=== PATIENT | male | born 1945 | race Caucasian/White ===

== ENCOUNTER 2017-09-06 06:09 | Inpatient (IN) ==
[2017-09-06] MEDS ORDERED: Levofloxacin 500 MG/100 ML 500 MG/100 ML BAG IVPB ONE (06:40)
[2017-09-06] MEDS ORDERED: Ringers Solution, Lactated 1,000 ML IVC SCH (06:45)
--- NOTE | 2017-09-06 06:55 | Urology History & Physical ---
Date of Encounter: 09/06/17 Time of Encounter: 06:52 Assessment and Plan (1) Left renal mass Current Visit: Yes Status: Acute to OR today for left hand assisted lap nephrectomy History of Present Illness Chief complaint: left renal mass HPI: Mr. Carballo is a 72 year old male with history of large left renal mass. Patient here today for left radical nephrectomy. Past Med Surg Social Fam HX - Past Medical History Medical history: diabetes, hyperlipidemia, hypertension, other Additional medical history: Insomnia. heart dx Psychiatric history: depression - Past Surgical History Additional surgical history: heart bypass 2004. prostate sx 2007 - Social History Smoking Status: Unknown if ever smoked Smokeless Tobacco Status: No Alcohol use: none Drug use: none, other Medications and Allergies cephALEXin [Keflex] 500 mg PO BID #20 capsule 02/05/17 [Rx] 3 Allergy/AdvReac Type Severity Reaction Status Date / Time etodolac AdvReac Nausea Verified 09/06/17 06:50 tramadol AdvReac Nausea Verified 09/06/17 06:50 Review of Systems - Constitutional no chills, no fever(s) - EENT Nose, mouth and throat: no dizziness - Cardiovascular no chest pain - Respiratory no cough - Gastrointestinal abdominal pain Exam Initial Vital Signs Temp Pulse Resp BP Pulse Ox 97.7 F 69 18 166/95 99 09/06/17 06:35 09/06/17 06:35 09/06/17 06:35 09/06/17 06:35 09/06/17 06:35 - General physical appearance Present: well developed, well nourished - Eyes Present: PERRL - ENT Present: normal nares - Cardiovascular Cardiovascular exam IM: RRR - Abdomen Abdomen: Present: soft Urology Results - Labs All other labs normal.
[2017-09-06] MEDS ORDERED: Lidocaine -MPF 2% 2 ML VIAL ONE (06:56)
[2017-09-06] MEDS ORDERED: *HR* FentaNYL (PF) 100 MCG/2 ML VIAL ONE ×2 (06:56→08:38)
[2017-09-06] MEDS ORDERED: *HR* Rocuronium Bromide 50 MG/5 ML VIAL ONE (06:56)
[2017-09-06] MEDS ORDERED: Neostigmine Methylsulfate 3 MG/3 ML SYRINGE ONE (06:56)
[2017-09-06] MEDS ORDERED: Ondansetron 4 MG/2 ML VIAL ONE (06:56)
--- NOTE | 2017-09-06 06:56 | History & Physical Report ---
Date of Encounter: 09/06/17 Time of Encounter: 06:55 24 Hour HP Update - Instructions Instructions: If the History and Physical is less than 30 days old and was completed prior to A.M. admission and or procedure and has NOT been updated on calendar day of procedure please complete this update prior to performing procedure. - Update Patient reports changes in Medical Condition: No Changes in examination, assessment, or condition: No Changes in Medication: No Preop tests/diagnostics Reviewed: Yes Surgery Remains Indicated: Yes Consent for Planned Operative Procedure(s) Verified: Yes - Pre-Operative Checklist Preoperative Checklist Indicated: Yes Prophylactic Antibiotic Ordered: Yes Is VTE Prophylaxis Indicated?: Yes
[2017-09-06] MEDS ORDERED: *HR* Propofol 200 MG/20 ML VIAL IVP ONE (06:57)
[2017-09-06] MEDS ORDERED: Lidocaine -MPF 4% 5 ML AMPUL ONE (07:02)
[2017-09-06] MEDS ORDERED: EPHEDrine 50 MG/ML VIAL ONE (07:06)
[2017-09-06] MEDS ORDERED: Dexamethasone 4 MG/ML VIAL ONE (07:07)
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
[2017-09-06] MEDS ORDERED: *HR* Labetalol 100 MG/20 ML MDV ONE (07:37)
[2017-09-06] MEDS ORDERED: *HR* Vasopressin 20 UNIT/ML VIAL ONE (07:37)
[2017-09-06] MEDS ORDERED: Acetaminophen IV 1,000 MG/100 ML INFUS..BTL ONE (07:37)
[2017-09-06] MEDS ORDERED: *HR* PHENYLEPHRINE 1,000 MCG/10 ML SYRINGE IVP ONE ×2 (08:20→10:41)
[2017-09-06] MEDS ORDERED: Esmolol 100 MG/10 ML VIAL IVP ONE (08:41)
[2017-09-06] MEDS ORDERED: *HR* OxyCODONE Immed Rel 5 MG TABLET PO PRN ×2 (08:45→10:58)
[2017-09-06] MEDS ORDERED: *HR* Morphine 2 MG/ML SYRINGE IVP PRN (08:45)
[2017-09-06] MEDS ORDERED: *HR* Labetalol 20 MG/4 ML SYRINGE IVP PRN (08:45)
[2017-09-06] MEDS ORDERED: *HR* Promethazine 25 MG/ML VIAL IVP PRN ×2 (08:45→10:58)
[2017-09-06] MEDS ORDERED: SUGAMMADEX SODIUM 500 MG/5 ML VIAL IV ONE (09:09)
--- NOTE | 2017-09-06 09:29 | Operative Note ---
Date of procedure: 09/06/17 Pre-op diagnosis: left renal mass Post-op diagnosis: same Procedure: Left hand-assisted laparoscopic radical nephrectomy Anesthesia: TASHAA Surgeon: Daniel Guthrie Was there an account management assistant present: No Refining Engineer: Christel Valenzuela Estimated blood loss (cc): 20 Specimen: left kidney Condition: stable Disposition: PACU Procedure in Detail: Patient was prepped and draped in normal sterile fashion. Timeout procedure performed. I then made a incision supraumbilical and carried this cranially I then was able to enter the peritoneum. Hand port was placed in standard fashion. 2 12 mm trochars were then placed in the lower abdomen in standard fashion. I then was able to reflect the colon medially using the Harmonic scalpel.. I was easily able to identify the left kidney and the left ureter. I then used this to carry my dissection cranially toward the hilum. I was able to identify the renal hilum. I then used the 60 mm vascular load stapler to staple across the hilum. One further load was used to staple cranial attachments of the kidney. Kidney was then removed from the patient's abdomen. I then rechecked for hemostasis which was adequate. No obvious bleeding was noted. I then closed patient's fascia using running 0 PDS. Skin was closed using 4-0 Monocryl. Dermabond was placed over top. Patient taken to PACU in stable condition.
--- NOTE | 2017-09-06 10:09 | Anesthesia Evaluation Post Op ---
Date of Encounter: 09/06/17 Time of Encounter: 10:09 - Vital Signs Vital Signs: Last Vital Signs Temp 97.9 F 09/06/17 10:02 Pulse 82 09/06/17 10:02 Resp 14 09/06/17 10:02 BP 134/86 09/06/17 10:02 Pulse Ox 97 09/06/17 10:02 - Lungs Lungs: Clear Ascult./Percussion - Airway Airway: Non-obstructed - Cardiovascular Regular Rate - Mental Status Mental Status: Alert & Oriented, Answers Appropriately - Pain Pain Scale: 4 - Nausea Vomiting Nausea Vomiting: Not Present - Hydration Hydration: NPO, Gruber catheter - Discharge PostOp Status: Transfer Patient to floor
[2017-09-06] MEDS ORDERED: Naloxone 0.4 MG/ML INJ IVP PRN (10:58)
[2017-09-06] MEDS: *HR* HYDROcodone/Acet 5/325 mg TABLET PO PRN ×2 (11:20→20:58)
[2017-09-06] MEDS: 0.9 % Sodium Chloride 1,000 ML IVC SCH ×2 (11:49→20:11)
[2017-09-06] MEDS: *HR* Metformin 500 MG TABLET PO SCH (17:35)
[2017-09-06] MEDS: [UNRECOGNIZED DRUG - OTHER] OP SCH (20:57)
[2017-09-06] MEDS: hydrOXYzine pamoate 25 MG CAPSULE PO SCH (20:57)
[2017-09-07] MEDS: 0.9 % Sodium Chloride 1,000 ML IVC SCH ×3 (04:16→20:33)
[2017-09-07 05:15] LABS: Basophils % 0.3 %; Hematocrit 34.8 % (37.5-50.1); Hemoglobin 11.5 g/dL (12.9-16.9); Immature Granulocytes % 0.3 % (0-4); Lymphocytes % 15.5 %; Mean Corpuscular Hemoglobin 31.1 pg (28.0-33.3); Mean Corpuscular Volume 94.1 fL (83.0-100.0); Mean Platelet Volume 9.8 fL (9.4-12.4); Monocytes # 0.8 K/mcL (0.0-1.3); Monocytes % 11.8 %; Neutrophils # 4.8 K/mcL (1.6-8.9); Platelet Count 174 K/mcL (140-400); Red Cell Distribution Width 11.8 % (11.5-14.5); Segmented Neutrophils % 72.1 %
[2017-09-07 05:33] LABS: BUN/Creatinine Ratio 13 (6-26); Blood Urea Nitrogen 19 mg/dL (8-23); Calcium 8.8 mg/dL (8.6-10.3); Carbon Dioxide 24 mEq/L (23-29); Chloride 106 mEq/L (98-107); Glucose 140 mg/dL (70-105); Osmolality,Calculated 287 (280-300); Potassium 4.1 mEq/L (3.5-5.1); Sodium 136 mEq/L (136-145); eGFR For African Americans > 60 (> 60); eGFR For Non-African Americans 50 (> 60)
--- NOTE | 2017-09-07 07:08 | Urology Progress Note ---
Date of Encounter: 09/07/17 Time of Encounter: 07:06 - Assessment and Plan (1) Left renal mass Current Visit: Yes Status: Acute Assessment and plan: sp nephrectomy. expected rise in serum creatinine. up and ambulate. continue clears. Progress Note Narrative: patient seen. POD 1 from left HALN. patient is doing great. up and in chair last night. caren clears. no fevers. Objective Initial Vital Signs Temp Pulse Resp BP Pulse Ox 97.7 F 69 18 166/95 99 09/06/17 06:35 09/06/17 06:35 09/06/17 06:35 09/06/17 06:35 09/06/17 06:35 - General physical appearance Present: well developed, well nourished - Abdomen Present: soft. Absent: tender (incisions c/d/i) - Labs 09/07/17 04:55 09/07/17 04:55 Diabetes panel 09/07/17 Range/Units 04:55 Sodium 136 (136-145) mEq/L Potassium 4.1 (3.5-5.1) mEq/L Chloride 106 (98-107) mEq/L Carbon Dioxide 24 (23-29) mEq/L BUN 19 (8-23) mg/dL Creatinine 1.41 H (0.70-1.30) mg/dL Glucose 140 H (70-105) mg/dL Calcium 8.8 (8.6-10.3) mg/dL Calcium panel 09/07/17 Range/Units 04:55 Calcium 8.8 (8.6-10.3) mg/dL Pituitary panel 09/07/17 Range/Units 04:55 Sodium 136 (136-145) mEq/L Potassium 4.1 (3.5-5.1) mEq/L Chloride 106 (98-107) mEq/L Carbon Dioxide 24 (23-29) mEq/L BUN 19 (8-23) mg/dL Creatinine 1.41 H (0.70-1.30) mg/dL Glucose 140 H (70-105) mg/dL Calcium 8.8 (8.6-10.3) mg/dL Adrenal panel 09/07/17 Range/Units 04:55 Sodium 136 (136-145) mEq/L Potassium 4.1 (3.5-5.1) mEq/L Chloride 106 (98-107) mEq/L Carbon Dioxide 24 (23-29) mEq/L BUN 19 (8-23) mg/dL Creatinine 1.41 H (0.70-1.30) mg/dL Glucose 140 H (70-105) mg/dL Calcium 8.8 (8.6-10.3) mg/dL - VTE Documentation of Mechanical Device: Intermittent pneumatic compression device Consult Discharge Plan - Plan [facility]errals: [facility] [Primary Care Provider[facility] -
[2017-09-07] MEDS: hydroCHLOROthiazide 25 MG TABLET PO SCH (09:08)
[2017-09-07] MEDS: *HR* Metformin 500 MG TABLET PO SCH ×2 (09:08→17:50)
[2017-09-07] MEDS: Lisinopril 20 MG TABLET PO SCH (09:09)
[2017-09-07] MEDS: Isosorbide MONOnitrate (24 HR) 30 MG TAB.ER.24H PO SCH (09:09)
[2017-09-07] MEDS: Metoprolol XL (24 HR) Succ 25 MG TAB.ER.24H PO SCH (13:12)
--- NOTE | 2017-09-07 16:03 | Physician Discharge Referral ---
ExtendedCare Referral Info Transfer To: [facility] Provider in Charge after Transfer: PCP Institutional Level of Care: Intermediate - Diagnosis (1) Left renal mass Priority: Primary Status: Acute Expected Duration of Placement: 7 days Prognosis: Good Aware of Diagnosis: Patient, Family Aware of Prognosis: Patient, Family - Transfer Medications Prescriptions: HYDROcodone/Acet 5/325 mg [[place] 5-325 mg] 2 tab PO Q6H PRN 3 Days #12 tablet PRN Reason: Pain Home Medications: Aspirin [Lo-Dose Aspirin EC] 81 mg PO DAILY 09/06/17 [History] Cholecalciferol (D-3) [Vitamin D] 1,000 unit PO DAILY 09/06/17 [History] Isosorbide MONOnitrate (24 HR) [Imdur] 30 mg PO DAILY 09/06/17 [History] Lisinopril [Zestril] 20 mg PO DAILY 09/06/17 [History] Metoprolol Succinate [Toprol Xl] 12.5 mg PO DAILY 09/06/17 [History] [place]-3/Dha/Epa/Fish Oil [Fish Oil 1,000 mg Softgel] 1 cap PO DAILY 09/06/17 [ History] Simvastatin [Zocor] 40 mg PO HS 09/06/17 [History] Zolpidem [Ambien] 5 mg PO HS 09/06/17 [History] hydrOXYzine HCl [Hydroxyzine HCl] 25 mg PO HS 09/06/17 [History] hydroCHLOROthiazide [Hydrochlorothiazide] 12.5 mg PO DAILY 09/06/17 [History] metFORMIN [Glucophage] 250 mg PO BID 09/06/17 [History] HYDROcodone/Acet 5/325 mg [[place] 5-325 mg] 2 tab PO Q6H PRN 3 Days #12 tablet [Rx] Allergies/Adverse Reactions: 3 Allergy/AdvReac Type Severity Reaction Status Date / Time etodolac AdvReac Nausea Verified 09/06/17 06:50 tramadol AdvReac Nausea Verified 09/06/17 06:50 - Respiratory Orders Smoking Cessation: Smoking cessation has been advised. For more information, call the [place] Tobacco Quit Line at 3-840-PFBA-NOW. - Ancillary Orders May consult with Dentist, Shredding Machine Knife Changer, Client Service Supervisor PRN - Advance Directives Code Status: Full Code - Mobility Orders Ambulate - Rehabiliation Orders Rehab Potential: Good Rehab Orders: Evaluation for Physical Therapy, Evaluation for Occupational Therapy, Evaluation for Speech Therapy - Diet Orders Regular CERTIFICATION: I certify that the transfer of the above named patient to an Extended Care Facility is necessary for the continuing treatment of the diagnosis listed. The above information is true and accurate reflection of patient's current condition. Confidential - Redisclosure prohibited without a patient's written consent.
[2017-09-07] MEDS: [UNRECOGNIZED DRUG - OTHER] OP SCH (20:32)
[2017-09-07] MEDS: hydrOXYzine pamoate 25 MG CAPSULE PO SCH (20:32)
[2017-09-08] MEDS: *HR* HYDROcodone/Acet 5/325 mg TABLET PO PRN ×2 (00:37→15:37)
[2017-09-08] MEDS: 0.9 % Sodium Chloride 1,000 ML IVC SCH (04:07)
[2017-09-08] MEDS: Lisinopril 20 MG TABLET PO SCH (08:03)
[2017-09-08] MEDS: hydroCHLOROthiazide 25 MG TABLET PO SCH (08:03)
[2017-09-08] MEDS: Isosorbide MONOnitrate (24 HR) 30 MG TAB.ER.24H PO SCH (08:03)
[2017-09-08] MEDS: Metoprolol XL (24 HR) Succ 25 MG TAB.ER.24H PO SCH (08:03)
[2017-09-08] MEDS: *HR* Metformin 500 MG TABLET PO SCH ×2 (08:03→16:12)
--- NOTE | 2017-09-08 08:36 | Urology Progress Note ---
Date of Encounter: 09/08/17 Time of Encounter: 08:35 - Assessment and Plan (1) Left renal mass Current Visit: Yes Status: Acute Assessment and plan: doing well. ambulate. reg diet. likely dc to ecf tomorrow. Progress Note Narrative: POD 2 from left haln. doing well. no pain. caren diet. + flatus. Objective Initial Vital Signs Temp Pulse Resp BP Pulse Ox 97.7 F 69 18 166/95 99 09/06/17 06:35 09/06/17 06:35 09/06/17 06:35 09/06/17 06:35 09/06/17 06:35 - General physical appearance Present: well developed, well nourished - Respiratory Present: normal expansion, normal respiratory effort - Abdomen Present: soft (incisions c/d/i) - Labs 09/07/17 04:55 09/07/17 04:55 - VTE Documentation of Mechanical Device: Intermittent pneumatic compression device Consult Discharge Plan - Plan [facility]errals: [facility] [Primary Care Provider] - Prescriptions: HYDROcodone/Acet 5/325 mg [[place] 5-325 mg] 2 tab PO Q6H PRN 3 Days #12 tablet PRN Reason: Pain
[2017-09-08] MEDS: [UNRECOGNIZED DRUG - OTHER] OP SCH (21:35)
[2017-09-08] MEDS: hydrOXYzine pamoate 25 MG CAPSULE PO SCH (21:36)
--- NOTE | 2017-09-09 08:12 | Discharge Summary ---
Orders not resulted at time of discharge: Pending orders 09/06/17 09:28 Surgical Pathology [PTH] Routine Date of Encounter: 09/09/17 Time of Encounter: 08:11 - Discharge Diagnosis (1) Left renal mass Priority: Primary Status: Acute - Hospital Course Hospital course: Mr. Carballo is a 72 year old male who underwent left hand-assisted laparoscopic nephrectomy on 09/06/2017. Patient recovered well. He was up and ambulating early. Tolerated regular diet. He was having bowel movements. Time spent discussing smoking cessation with patient: 3 to 10 minutes - Time Spent with Patient Total time spent providing and/or coordinating discharge services: Less than 30 minutes Procedures and tests throughout hospitalization: Left hand-assisted lap scopic nephrectomy on 09/06/2017 Labs on day of discharge: Labs from last 24 hours 09/08/17 09/08/17 09/08/17 20:34 17:10 12:09 POC Glucose 153 H 139 H 154 H 09/08/17 08:16 POC Glucose 103 H - Discharge Medications Prescriptions: HYDROcodone/Acet 5/325 mg [[place] 5-325 mg] 2 tab PO Q6H PRN 3 Days #12 tablet PRN Reason: Pain Home Medications: Aspirin [Lo-Dose Aspirin EC] 81 mg PO DAILY 09/06/17 [History] Cholecalciferol (D-3) [Vitamin D] 1,000 unit PO DAILY 09/06/17 [History] Isosorbide MONOnitrate (24 HR) [Imdur] 30 mg PO DAILY 09/06/17 [History] Lisinopril [Zestril] 20 mg PO DAILY 09/06/17 [History] Metoprolol Succinate [Toprol Xl] 12.5 mg PO DAILY 09/06/17 [History] [place]-3/Dha/Epa/Fish Oil [Fish Oil 1,000 mg Softgel] 1 cap PO DAILY 09/06/17 [ History] Simvastatin [Zocor] 40 mg PO HS 09/06/17 [History] Zolpidem [Ambien] 5 mg PO HS 09/06/17 [History] hydrOXYzine HCl [Hydroxyzine HCl] 25 mg PO HS 09/06/17 [History] hydroCHLOROthiazide [Hydrochlorothiazide] 12.5 mg PO DAILY 09/06/17 [History] metFORMIN [Glucophage] 250 mg PO BID 09/06/17 [History] HYDROcodone/Acet 5/325 mg [[place] 5-325 mg] 2 tab PO Q6H PRN 3 Days #12 tablet [Rx] Allergies/Adverse Reactions: 3 Allergy/AdvReac Type Severity Reaction Status Date / Time etodolac AdvReac Nausea Verified 09/06/17 06:50 tramadol AdvReac Nausea Verified 09/06/17 06:50 Date of admission: 09/06/17 10:27 [facility] care physician: [facility] Consults: 09/08/17 09:18 Consult to Physical Therapy [CONS] Routine Comment: Evaluate, develop and implement POC Reason for Consult: ECF Does patient have active BEDREST order?: No Is patient medically & hemodynamically stable?: Yes 09/08/17 09:20 Consult to Occupational Therapy [CONS] Routine Comment: Evaluate, develop and implement POC Reason for Consult: ECF placement for rehab Does patient have active BEDREST order?: No Is patient medically & hemodynamically stable?: Yes Discharging clinician: Daniel Guthrie Anticipated date of discharge: 09/09/17 Exam Initial Vital Signs Temp Pulse Resp BP Pulse Ox 97.7 F 69 18 166/95 99 09/06/17 06:35 09/06/17 06:35 09/06/17 06:35 09/06/17 06:35 09/06/17 06:35 - General physical appearance Present: well developed, well nourished - Eyes Present: PERRL - ENT Present: normal nares - Neck Present: no masses - Respiratory Present: normal respiratory effort - Cardiovascular Cardiovascular exam IM: RRR - Patient Status Disposition: Transfer SNF Condition: Good Functional capacity at discharge: independent ambulation Overall status at discharge: patient is progressing back to baseline - Discharge Instructions Follow Up With: [facility] [Primary Care Provider[facility] - Daniel Guthrie MD [Partnered Physician] - (2-3 weeks ) - Diet and Activity Activity: increase activity as tolerated Diet: advance to your usual diet - VTE Documentation of Mechanical Device: Intermittent pneumatic compression device
[2017-09-09] MEDS: Isosorbide MONOnitrate (24 HR) 30 MG TAB.ER.24H PO SCH (08:31)
[2017-09-09] MEDS: *HR* Metformin 500 MG TABLET PO SCH ×2 (08:31→16:24)
[2017-09-09] MEDS: Metoprolol XL (24 HR) Succ 25 MG TAB.ER.24H PO SCH (08:31)
[2017-09-09] MEDS: Lisinopril 20 MG TABLET PO SCH (08:31)
[2017-09-09] MEDS: hydroCHLOROthiazide 25 MG TABLET PO SCH (08:32)
[2017-09-09] MEDS: *HR* HYDROcodone/Acet 5/325 mg TABLET PO PRN (16:23)
[2017-09-09] MEDS: [UNRECOGNIZED DRUG - OTHER] OP SCH (21:00)
[2017-09-09] MEDS: hydrOXYzine pamoate 25 MG CAPSULE PO SCH (21:00)
--- NOTE | 2017-09-10 07:10 | Urology Progress Note ---
Date of Encounter: 09/10/17 Time of Encounter: 07:09 - Assessment and Plan (1) Left renal mass Current Visit: Yes Status: Acute Assessment and plan: Patient will be discharged home today. He does not wish to go to ECF at this time. He feels as though he is recovered well. Progress Note Narrative: Patient doing well. He is postoperative day 4 from left hand-assisted laparoscopic nephrectomy. Patient has been up and ambulating. Tolerating diet having bowel movements. Objective Initial Vital Signs Temp Pulse Resp BP Pulse Ox 97.7 F 69 18 166/95 99 09/06/17 06:35 09/06/17 06:35 09/06/17 06:35 09/06/17 06:35 09/06/17 06:35 - General physical appearance Present: well developed, well nourished - Abdomen Present: soft (Incisions clean dry and intact) - Labs 09/07/17 04:55 09/07/17 04:55 - VTE Documentation of Mechanical Device: Intermittent pneumatic compression device Consult Discharge Plan - Plan Referrals: Daniel Guthrie MD [Partnered Physician] - (2-3 weeks ) [facility] [Primary Care Provider] - Prescriptions: HYDROcodone/Acet 5/325 mg [[place] 5-325 mg] 2 tab PO Q6H PRN 3 Days #12 tablet PRN Reason: Pain
[2017-09-10] MEDS: *HR* Metformin 500 MG TABLET PO SCH (08:57)
[2017-09-10] MEDS: Isosorbide MONOnitrate (24 HR) 30 MG TAB.ER.24H PO SCH (08:57)
[2017-09-10] MEDS: hydroCHLOROthiazide 25 MG TABLET PO SCH (08:57)
[2017-09-10] MEDS: Lisinopril 20 MG TABLET PO SCH (08:58)
[2017-09-10] MEDS: Metoprolol XL (24 HR) Succ 25 MG TAB.ER.24H PO SCH (08:58)
[2017-09-10 10:09] VITALS: BP 121/72
== END 2017-09-10 11:50 | disposition home health service (06) | DRG 658 ==
LOC: SAMDAY 06:09 → 3ANU 10:27
PROVIDERS: ADMIT Urology; ATTEND Urology